=== PATIENT | female | born 1945 | race Asian ===

== ENCOUNTER → 2023-09-27 13:43 | Outpatient (CLI) | payer MEDICARE, SELFPAY ==
--- NOTE | 2023-09-27 13:46 | DI.NM.S_ITS ---
PROCEDURE: NM DERICK PERF SPECT REST & STR Rest and exercise myocardial perfusion SPECT with gated imaging and ejection fraction RADIOPHARMACEUTICAL: 25.2 mCi Tc-99m sestamibi IV at rest and 26.3 mCi Tc-99m sestamibi IV at peak exercise. A [id number] was performed. INDICATIONS: Dyspnea on exertion TECHNIQUE: Radiopharmaceutical was injected at peak stress test, and also at rest. SPECT images were obtained. SPECT myocardial perfusion images were displayed in short axis, horizontal long axis, and vertical long axis views. Gated images were reviewed using [employer] software. COMPARISON: None. CARDIAC STRESS: A standard Joe treadmill exercise tolerance test was performed by the patient under the supervision of an attending staff. The patient exercised for 5 minutes and 11 seconds; 5.3 METS; functional aerobic impairment (WENDY) is negative to %. Hemodynamic data: There is normal blood pressure and heart rate response to exercise stress. Patient achieved 112% of maximum predicted heart rate at peak exercise. Maximum blood pressure 202/86. Symptoms: Patient denied chest pain during exercise. EKG: No diagnostic EKG changes of ischemia; no ectopy. FINDINGS: Raw data: There is good myocardial labeling by radiotracer. No significant motion artifacts. Mdzo-tt-tvgsh ratio is 0.34 (normal is less than 0.38 for sestamibi tracer, and less than 0.50 for thallium tracer). Left ventricle function: Gated images demonstrate normal left ventricle wall thickening. No segmental wall motion abnormality. No transient ischemic dilation; TID is 0.62 (normal less than 1.3). The left ventricle resting end-diastolic volume is 89 mL. Left ventricle stress ejection fraction is >75%; normal values are above 45%. Myocardial perfusion: There is normal distribution of activity in the left and right ventricular myocardium. No fixed or reversible perfusion defects. IMPRESSION: Low risk study. No evidence of exercise-induced ischemia on ECG or SPECT imaging. Normal LV size with hyperdynamic function. Normal hemodynamic response. Fair exercise capacity. Dictated by: Carin Villa D.O. on 09/28/2023 at 18:09 Approved by: Carin Villa D.O. on 09/28/2023 at 18:11
== END ==
PROVIDERS: PCP Internal Medicine; Referring Provider Internal Medicine; Visit Provider Internal Medicine
DX: R06.09 Other forms of dyspnea (principal)
CPT/HCPCS: 78452; 93017; A9502